=== PATIENT | male | born 1985 | race Caucasian/White ===

== ENCOUNTER → 2022-04-14 | Day surgery (SDC) | payer BC ==
[2022-04-13 09:59] LABS: BASOPHILS % 0.4 % (0.0-1.0); EOSINOPHILS # (AUTO) 0.1 (0.0-0.4); EOSINOPHILS % 1.6 % (0.0-6.0); HEMOGLOBIN 16.3 g/dL (14.0-18.0); LYMPHOCYTES # (AUTO) 1.5 (1.0-3.2); LYMPHOCYTES % 28.5 % (18.0-39.1); MEAN CORPUSCULAR HEMOGLOBIN 29.6 pg (28-32); MEAN CORPUSCULAR VOLUME 87.1 fL (81-99); MONOCYTES # (AUTO) 0.5 (0.2-0.8); MONOCYTES % 8.9 % (4.4-11.3); NEUTROPHILS # (AUTO) 3.1 (2.1-6.9); NEUTROPHILS % 60.4 % (38.7-80.0); PLATELET COUNT 151 x10e3/uL (140-360); RED BLOOD COUNT 5.51 x10e6/uL (4.3-5.7); RED CELL DISTRIBUTION WIDTH 12.4 % (11.7-14.4)
[2022-04-13 10:23] LABS: ANION GAP 15.5 mmol/L (8-16); CALCIUM 9.2 mg/dL (8.4-10.2); CREATININE, SERUM 0.99 mg/dL (0.72-1.25); POTASSIUM 4.5 mmol/L (3.5-5.1)
[~2022-04-14] MED LIST: BUPIVACAINE HCL 0.5% INJ 30 ML VIAL INJ ONE; CYCLOBENZAPRINE10 MG PO; DEXAMETHASONE SOD PHOS INJ 4 MG/ML SDV ONE; GLIMEPIRIDE2 MG PO; KETOROLAC TROMETHAMINE 30 MG/ML VIAL IV ONE; LIDOCAINE HCL 2% LOCAL INJ 5 ML SDV VIAL INJ ONE; METFORMIN HCL500 MG PO; NEOSTIGMINE 1 MG/ML 10ML VIAL ONE; NORCO 7.5-3251 EACH PO; ONDANSETRON HCL INJ 2MG/ML 2ML 2 MG/ML VIAL IV ONE; POVIDONE IODINE 0.05% 0.05 % ML PO ONE; PROPOFOL IV EMULSION 10 MG/ML 20 ML VIAL IV ONE; SEVOFLURANE INHAL SOLN 250 ML PEN BTL INH ONE; TRESIBA100 UNIT/1 PO
[2022-04-14 14:35] VITALS: BP 128/82
== END | disposition home or self-care (01) ==
LOC: OR 10:44
PROVIDERS: ATTEND Podiatrist Foot Surgery
DX: M20.42 Other hammer toe(s) (acquired), left foot (principal); M86.172 Other acute osteomyelitis, left ankle and foot; M86.672 Other chronic osteomyelitis, left ankle and foot; L89.892 Pressure ulcer of other site, stage 2; E11.9 Type 2 diabetes mellitus without complications; Z01.810 Encounter for preprocedural cardiovascular examination; Z01.812 Encounter for preprocedural laboratory examination; Z01.818 Encounter for other preprocedural examination; Z79.4 Long term (current) use of insulin
CPT/HCPCS: 28285; 36415 ×2; 71046; 80048; 82948; 85025; 87071; 87075; 87186; 87205; 88305; 88311; 93005; J0690; J1100; J1885; J2001; J2405; J2704; J2710; 76000